=== PATIENT | female | born 1950 | race Caucasian/White ===

== ENCOUNTER 2022-08-26 13:43 | Outpatient (CLI) | payer MEDICARE ==
[2022-08-26 14:40] LABS: Hemoglobin 15.1 g/dL (12.0-15.5)
[2022-08-26 14:56] LABS: Anion Gap 18 mmol/L (10-20); BUN (Urea Nitrogen) 8 mg/dL (9.8-20.1); Calc. Creatinine Clearance 0 mL/min (70-130); Calcium 10.1 mg/dL (7.8-10.44); Carbon Dioxide 27 mmol/L (23-31); Chloride 99 mmol/L (98-107); Estimated GFR 86; Glucose 173 mg/dL (83-110); Potassium 3.6 mmol/L (3.5-5.1); Sodium 140 mmol/L (136-145)
== END 2022-08-26 13:44 | disposition home or self-care (01) ==
LOC: LABBT 13:43
PROVIDERS: ATTEND Specialist
DX: Z01.818 Encounter for other preprocedural examination (principal); L72.0 Epidermal cyst
CPT/HCPCS: 80048; 85014; 85018; 93005; 93010

== ENCOUNTER 2022-08-29 06:40 | Day surgery (SDC) | payer MEDICARE ==
[2022-08-28 13:10] VITALS: BMI 21.7
[2022-08-29] MEDS ORDERED: fentaNYL Citrate/PF 100 MCG/2 ML SYRINGE ONE (06:47)
[2022-08-29] MEDS ORDERED: EPINEPHrine 1 MG/ML AMP ONE (09:12)
[2022-08-29] MEDS ORDERED: Lidocaine 1% (PF) 30 ML VIAL ONE (09:12)
[2022-08-29] MEDS ORDERED: SUGAMMADEX SODIUM 200 MG/2 ML VIAL ONE (09:23)
[2022-08-29] MEDS ORDERED: Dexamethasone 20 MG/5 ML VIAL ONE (09:36)
[2022-08-29] MEDS ORDERED: Ondansetron PF 4 MG/2 ML Vial ONE (09:36)
[2022-08-29] MEDS ORDERED: PHENYLEPHRINE-NS 100 MCG/ML 10 ML SYRINGE ONE (09:36)
[2022-08-29] MEDS ORDERED: ePHEDrine 50 MG/ML VIAL ONE (09:36)
[2022-08-29] MEDS ORDERED: PROPOFOL 200 MG/20 ML VIAL ONE (09:36)
[2022-08-29] MEDS ORDERED: Rocuronium Bromide 10 MG/ML (10ML VIAL) ONE (09:36)
[2022-08-29] MEDS ORDERED: HYDROcodone/Acetaminophen 5/325 mg Tablet ONE (13:41)
== END 2022-08-29 14:06 | disposition home or self-care (01) ==
LOC: SDC 06:40
PROVIDERS: ATTEND Specialist
PROC: 0CB80ZZ Excision of Right Parotid Gland, Open Approach (ICD-10-PCS; principal; 2022-08-29)
DX: D11.0 Benign neoplasm of parotid gland (principal); I10 Essential (primary) hypertension; M19.90 Unspecified osteoarthritis, unspecified site; E11.9 Type 2 diabetes mellitus without complications; Z79.899 Other long term (current) drug therapy
CPT/HCPCS: 42415; C1713; C1776; 88305; 88307; 88331; J0171; J1100; J2001; J2405; J2704; J3490

== ENCOUNTER 2022-12-23 11:13 | Outpatient (CLI) | payer MEDICARE ==
[~2022-12-23 11:13] MED LIST: Regadenoson 0.4 MG/5 ML SYRINGE ONE
== END 2022-12-23 11:14 | disposition home or self-care (01) ==
LOC: NM 11:13
PROVIDERS: ATTEND Internal Medicine Cardiovascular Disease
DX: R94.31 Abnormal electrocardiogram [ECG] [EKG] (principal)
CPT/HCPCS: 78452; A9500